=== PATIENT | female | born 2000 | race Caucasian/White ===

== ENCOUNTER 2023-09-18 16:07 | Emergency (ER) | payer SELFPAY ==
[~2023-09-18] VITALS: Ht 170.2 cm; Wt 63.6 kg
[2023-09-18] MEDS ORDERED: ISOVUE-370 76% 100ML VIAL As Ordered ONE (17:18)
[2023-09-18 17:32] LABS: BASO % 0.4 % (0.0-1.0); EOS # 0.2 10^3/uL (0.0-0.5); EOS % 1.5 % (0.0-3.0); HEMATOCRIT 35.5 % (36.0-47.0); HEMOGLOBIN 11.9 g/dl (12.0-15.5); LYMPH % 18.3 % (24.0-44.0); MEAN CORPUSCULAR HEMOGLOBIN 30.7 pg (27.0-33.0); MEAN CORPUSCULAR HGB CONC 33.5 g/dl (32.0-36.5); MEAN CORPUSCULAR VOLUME 91.5 fl (80.0-96.0); MONO # 0.9 10^3/uL (0.0-0.8); MONO % 8.7 % (2.0-8.0); NEUTROPHILS # 7.7 10^3/uL (1.5-8.5); NEUTROPHILS % 70.6 % (36.0-66.0); PLATELET COUNT, AUTOMATED 254 10^3/uL (150-450); RED BLOOD COUNT 3.88 10^6/uL (4.00-5.40); WHITE BLOOD COUNT 10.9 10^3/uL (4.0-10.0)
[2023-09-18 17:35] LABS: APPEARANCE, URINE HAZY (CLEAR); BACTERIA, URINE AUTO NEGATIVE (NEGATIVE); BILIRUBIN, URINE AUTO NEGATIVE (NEGATIVE); BLOOD, URINE BLOOD 1+ (NEGATIVE); COLOR, URINE STRAW (YELLOW); GLUCOSE, URINE (UA) AUTO NEGATIVE (NEGATIVE); KETONE, URINE AUTO NEGATIVE (NEGATIVE); LEUKOCYTE ESTERASE, URINE AUTO 2+ (NEGATIVE); NITRITE, URINE AUTO NEGATIVE (NEGATIVE); PROTEIN, URINE AUTO NEGATIVE (NEGATIVE); RBC, URINE AUTO 1 /HPF (0-3); SQUAMOUS EPITHELIAL CELL UR AU 2 /HPF (0-6); UROBILINOGEN, URINE AUTO 0.2 mg/dL (0.0-2.0); WBC, URINE AUTO 43 /HPF (0-3)
[2023-09-18] MEDS: MORPHINE 4 MG/ML 1ML VIAL IV ONE ×3 (17:42→20:53)
[2023-09-18] MEDS: ONDANSETRON 4MG 2ML VIAL IV ONE (17:43)
[2023-09-18 17:47] LABS: INR 1.06; PARTIAL THROMBOPLASTIN TIME 28.2 SECONDS (24.8-34.2); PROTHROMBIN TIME 13.5 SECONDS (12.5-14.5)
[2023-09-18 17:52] LABS: ETHYL ALCOHOL (ETHANOL) < 0.003 % (0.000-0.010); HCG, SERUM QUALITATIVE NEGATIVE (NEGATIVE); LIPASE 30 U/L (12-53)
[2023-09-18 17:53] LABS: AMYLASE 69 U/L (30-118)
[2023-09-18 17:54] LABS: ALBUMIN 3.5 G/DL (3.2-5.2); ALKALINE PHOSPHATASE 64 U/L (46-116); ALT/SGPT 21 U/L (7.0-40); AST/SGOT 28 U/L (<34); BILIRUBIN,DIRECT 0.1 MG/DL (<0.4); BILIRUBIN,TOTAL 0.4 MG/DL (0.3-1.2); TOTAL PROTEIN 6.2 G/DL (5.7-8.2)
[2023-09-18 18:30] LABS: AMPHETAMINES LEVEL URINE NEGATIVE (NEGATIVE); BARBITURATES URINE NEGATIVE (NEGATIVE); BENZODIAZEPINES URINE NEGATIVE (NEGATIVE); CANNABINOIDS URINE POSITIVE (NEGATIVE); COCAINE METABOLITE URINE NEGATIVE (NEGATIVE); METHADONE URINE NEGATIVE (NEGATIVE); OPIATES URINE NEGATIVE (NEGATIVE); PHENCYCLIDINE URINE NEGATIVE (NEGATIVE)
[2023-09-18 19:36] LABS: HEMATOCRIT 35.3 % (36.0-47.0); HEMOGLOBIN 11.9 g/dl (12.0-15.5); MEAN CORPUSCULAR HEMOGLOBIN 30.5 pg (27.0-33.0); MEAN CORPUSCULAR HGB CONC 33.7 g/dl (32.0-36.5); MEAN CORPUSCULAR VOLUME 90.5 fl (80.0-96.0); PLATELET COUNT, AUTOMATED 232 10^3/uL (150-450); WHITE BLOOD COUNT 10.8 10^3/uL (4.0-10.0)
[2023-09-18] MEDS: NS 1,000 ML IV SCH (20:54)
[2023-09-18] MEDS: MORPHINE 4 MG/ML 1ML VIAL IV PRN (22:04)
[2023-09-18 23:40] VITALS: BP 100/59; TEMP 98; O2SAT 100
== END 2023-09-18 23:48 | disposition short-term general hospital (02) ==
LOC: M ED 16:07
DX: S22.088A Other fracture of T11-T12 vertebra, initial encounter for closed fracture (principal); V86.55XA Driver of 3- or 4- wheeled all-terrain vehicle (ATV) injured in nontraffic accident, initial encounter; Y92.89 Other specified places as the place of occurrence of the external cause; Y93.89 Activity, other specified; Y99.8 Other external cause status
CPT/HCPCS: 70450; 71045; 71260; 72125; 72128; 72131; 74177; 80047; 80076; 80307; 81001; 82077; 82150; 83605; 83690; 84703; 85025; 85027; 85610; 85730; 86850; 86900; 86901; 93041; 94760; 96365; 96366; 96375; 96376; 99291; 99292; G0390; J2405; Q9967